=== PATIENT | male | born 1955 | race Caucasian/White ===

== ENCOUNTER 2021-01-21 16:22 | Emergency (ER) | payer SELFPAY ==
[~2021-01-21] VITALS: Ht 167.6 cm; Wt 103.0 kg
--- NOTE | 2021-01-21 17:06 | NUR ---
THE PATIENT BIBS FOR C/O FEELING WEAK AND DIZZY X 3 DAYS. COVID + DIAGNOSED AT [facility] 01/18/21. ALERT AND ORIENTED X4. DENIES PAIN. IN ROOM AIR AND DENIES SOB. RESPIRATION REGULAR AND UNLABORED. ATTACHED TO THE MONITOR.
[2021-01-21 18:07] LABS: BASOPHILS % (AUTO) 0.7 % (0.0-2.0); EOSINOPHILS % (AUTO) 0.5 % (0.0-6.0); HEMATOCRIT 48 % (39-51); LYMPHOCYTES % (AUTO) 18.2 % (20.0-44.0); MEAN CORPUSCULAR HGB CONC 33 g/dl (31.0-36.0); MEAN CORPUSCULAR VOLUME 88 fL (80-96); MONOCYTES # (AUTO) 0.5 K/uL (0.1-1.30); MONOCYTES % (AUTO) 8.4 % (2.0-12.0); NEUTROPHILS # (AUTO) 4.1 K/uL (1.8-8.9); NEUTROPHILS % (AUTO) 72.2 % (43.0-81.0); PLATELET COUNT (AUTO) 129 K/uL (150-450); WHITE BLOOD COUNT (AUTO) 5.7 K/uL (4.3-11.0)
[2021-01-21 18:38] LABS: CALCIUM, SERUM 7.8 mg/dL (8.5-10.1); CARBON DIOXIDE 24 mmol/L (21-32); CHLORIDE 103 mmol/L (98-107); CREATININE 0.8 mg/dL (0.6-1.3); GLUCOSE 102 mg/dL (74-106); POTASSIUM 3.3 mmol/L (3.5-5.1); SODIUM SERUM 137 mmol/L (136-145); UREA NITROGEN, BLOOD 12 mg/dL (7-18)
[2021-01-21 18:44] LABS: ALANINE AMINOTRANSFERASE 33 U/L (12-78); ALBUMIN 3.4 g/dL (3.4-5.0); ALKALINE PHOSPHATASE 62 U/L (46-116); ASPARTATE AMINOTRANSFERASE 28 U/L (15-37); BILIRUBIN,DIRECT 0.1 mg/dL (0.0-0.2); BILIRUBIN,TOTAL 0.3 mg/dL (0.2-1.0); TOTAL PROTEIN, SERUM 7.2 g/dL (6.4-8.2)
--- NOTE | 2021-01-21 18:45 | NUR ---
COVID SWAB DONE AND SENT TO THE LAB
--- NOTE | 2021-01-21 19:24 | NUR ---
MIKE FRANCIS IS AWARE OF BP 156/102 AND HR 87
[2021-01-21] MEDS ORDERED: AZIT250T13 PO (19:35)
[2021-01-21] MEDS ORDERED: DEXAMETHASONE SOD PHOSPHATE 10 MG/ML VIAL ONE (19:43)
[2021-01-21] MEDS: DEXAMETHASONE SOD PHOSPHATE 4 MG/ML VIAL IM ONE (19:57)
--- NOTE | 2021-01-21 20:10 | NUR ---
Patient discharged to home in stable condition. Written and verbal after care instructions given. Patient verbalizes understanding of instruction. IV removed. Catheter intact and site benign. Pressure and 4x4 applied to site. No bleeding noted. Pt picked up by son. Explained to pt to take his RX.
[2021-01-21 20:49] VITALS: BP 149/86
== END 2021-01-21 20:49 | disposition home or self-care (01) ==
LOC: ER 16:22
DX: U07.1 COVID-19 (principal); J12.82 Pneumonia due to coronavirus disease 2019; R79.1 Abnormal coagulation profile; E87.6 Hypokalemia; D69.6 Thrombocytopenia, unspecified; I11.9 Hypertensive heart disease without heart failure
CPT/HCPCS: 36415; 71045; 80048; 80076; 84484; 85025; 85378; 85730; 87426; 93005; 96372; 99285; C9803; J1100